=== PATIENT | female | born 1990 | race African-American/Black ===

== ENCOUNTER 2018-07-23 23:13 | Emergency (ER) | payer BC ==
[2018-07-24 00:57] LABS: ABSOLUTE BASOPHILS # (AUTO) 0.1 10^3/uL (0.0-0.2); ABSOLUTE EOSINOPHILS # (AUTO) 0.1 10^3/uL (0.0-0.6); ABSOLUTE LYMPHOCYTES (AUTO) 2.8 10^3/uL (0.5-4.7); ABSOLUTE MONOCYTES (AUTO) 0.6 10^3/uL (0.1-1.4); ABSOLUTE NEUT (AUTO) 7.1 10^3/uL (1.7-8.2); BASOPHILS % (AUTO) 0.9 % (0-2); HEMATOCRIT 36.7 % (36.0-47.0); HEMOGLOBIN 12.8 g/dL (12.0-15.5); LYMPHOCYTES % (AUTO) 26.2 % (13-45); MEAN CORPUSCULAR HEMOGLOBIN 30.3 pg (27.0-33.4); MEAN CORPUSCULAR HGB CONC 34.8 g/dL (32.0-36.0); MEAN CORPUSCULAR VOLUME 87 fl (80-97); MONOCYTES % (AUTO) 5.3 % (3-13); PLATELET COUNT 297 10^3/uL (150-450); RED BLOOD COUNT 4.22 10^6/uL (3.72-5.28); RED CELL DISTRIBUTION WIDTH 12.9 % (11.5-14.0); SEGMENTED NEUTROPHILS % (AUTO) 66.6 % (42-78); TOTAL CELLS COUNTED % (AUTO) 100 %; WHITE BLOOD COUNT 10.7 10^3/uL (4.0-10.5)
[2018-07-24 01:13] LABS: ALANINE AMINOTRANSFERASE 29 U/L (9-52); ALBUMIN 4.6 g/dL (3.5-5.0); ALKALINE PHOSPHATASE 74 U/L (38-126); ANION GAP 14 (5-19); ASPARTATE AMINO TRANSFERASE 28 U/L (14-36); BILIRUBIN,DIRECT 0.4 mg/dL (0.0-0.4); BILIRUBIN,TOTAL 0.6 mg/dL (0.2-1.3); BLOOD UREA NITROGEN 12 mg/dL (7-20); CARBON DIOXIDE 24 mmol/L (22-30); CHLORIDE 102 mmol/L (98-107); GLUCOSE 117 mg/dL (75-110); TOTAL PROTEIN 7.7 g/dL (6.3-8.2)
--- NOTE | 2018-07-24 02:12 | RADIOLOGY REPORT (SQ) ---
EXAM DESCRIPTION: XR CHEST 1 VIEW COMPLETED DATE/TME: 07/24/2018 00:32 CLINICAL HISTORY: 28 years, Female, chest pain COMPARISON: None. NUMBER OF VIEWS: 1 TECHNIQUE: AP portable upright chest LIMITATIONS: None. FINDINGS: Heart size is normal. Lungs are clear. No pneumothorax IMPRESSION: Negative chest copyright 2010 [employer]- All Rights Reserved
[2018-07-24] MEDS ORDERED: KETOROLAC TROMETHAMINE INJ/PF 30 MG/1 ML SDV IV ONE (02:47)
[2018-07-24] MEDS ORDERED: KETOROLAC TROMETHAMINE INJ/PF 30 MG/1 ML SDV IM ONE (03:00)
--- NOTE | 2018-07-24 03:13 | ER Document Report ---
ED General - General Chief Complaint: Chest Pain Stated Complaint: CHEST PAINS Time Seen by Provider: 07/23/18 23:27 Notes: Patient is a pleasant 20-year-old female presents with complaint of pain in her upper chest. She did raise some to the back. Made worse with drinkin and moving. No fevers. No abdominal pain. She does have a family history of [place] but she says she thinks everybody in her family who had MIs were over the age of 50. Patient does not smoke or do drugs. She does drink alcohol 2-3 times a week. Denies any leg pain or leg swelling. No recent long road trips. She went to urgent care earlier today when the pain started and they placed her on omeprazole which she says has not helped. She said they did give her a GI cocktail but that did not help. TRAVEL OUTSIDE OF THE [place] IN LAST 30 DAYS: No - Related Data Allergies/Adverse Reactions: No Known Allergies Allergy (Unverified 07/23/18 23:43) Past Medical History - Social History Smoking Status: Never Smoker Frequency of alcohol use: Occasional Drug Abuse: None Family History: CAD Patient has suicidal ideation: No Patient has homicidal ideation: No Pulmonary Medical History: Reports: Hx Asthma Renal/ Medical History: Denies: Hx Peritoneal Dialysis Review of Systems - Review of Systems Notes: My Normal Review Basic REVIEW OF SYSTEMS: CONSTITUTIONAL : Denies fever, chills, or sweats. Denies recent illness. EENT: Denies eye, ear, throat, or mouth pain or symptoms. Denies nasal or sinus congestion. CARDIOVASCULAR: Has chest pain RESPIRATORY: Denies cough, cold, or chest congestion. Denies shortness of breath, difficulty breathing, or wheezing. GASTROINTESTINAL: Denies abdominal pain. Denies nausea, vomiting, or diarrhea. MUSCULOSKELETAL: Denies neck or back pain or joint pain or swelling. SKIN: Denies rash or skin lesions. NEUROLOGICAL: Denies altered mental status or loss of consciousness. Denies headache. Denies weakness or paralysis or loss of use of either side. Denies problems with gait or speech. Denies sensory or motor loss. ALL OTHER SYSTEMS REVIEWED AND NEGATIVE. Physical Exam - Vital signs Vitals: Pulse Ox 100 07/23/18 23:38 - Notes Notes: General Appearance: Well nourished, alert, cooperative, no acute distress, mild to moderate obvious discomfort. Vitals: reviewed, See vital signs table. Head: no swelling or tenderness to the head Eyes: PERRL, EOMI, Conjuctiva clear Mouth: No decreasd moisture Throat: No tonsillar inflammation, No airway obstruction, No lymphadenopathy Chest wall: No tenderness to palpation of anterior chest wall. Lungs: No wheezing, No rales, No rhonci, No accessory muscle use, good air exchange bilaterally. Heart: Normal rate, Regular rythm, No murmur, no rub Abdomen: Normal BS, soft, No rigidity, No abdominal tenderness, No guarding, no rebound, Extremities: strength 5/5 in all extremities, good pulses in all extremities, no swelling or tenderness in the extremities, no edema. Skin: warm, dry, appropriate color, no rash Neuro: speech clear, oriented x 3, normal affect, responds appropriately to questions. Course - Re-evaluation Re-evalutation: 07/24/18 04:25 Patient is trying to feel better now that Toradol started to kick in. She looks well. She is in no distress. Lung pitt are clear. Chest x-ray does not show any evidence of infiltrative process or pneumothorax. I do not suspect PE as her d-dimer is negative and she is PERC rule negative. Her pain could be related to pleurisy as she says it does hurt more when she takes a deep breath. Possibly she may be having esophageal spasms that she also mentions that the pain occurs when she swallows. At this time I will place her on Toradol. Encourage her to take it with food. Informed to return to ER if she has worsening pain, fevers, difficulty breathing, or if she feels unwell. She is to follow-up with her primary care doctor on Saturday for reevaluation. Patient agrees with plan and will be discharged home. Dictation of this chart was performed using voice recognition software; therefore, there may be some unintended grammatical errors. - Vital Signs Vital signs: Temp Pulse Resp BP Pulse Ox 20 129/81 H 99 07/24/18 03:04 07/24/18 03:04 07/24/18 03:04 - Laboratory Result Diagrams: 07/24/18 00:43 07/24/18 00:43 Laboratory results interpreted by me: 07/24/18 07/24/18 00:43 00:43 WBC 10.7 H Glucose 117 H - EKG Interpretation by Me Additional EKG results interpreted by me: 07/24/18 03:13 EKG is reviewed and interpreted by me. EKG shows sinus rhythm with a rate of [address] segment elevation or depression. No ischemic T wave inversions. MS interval, QRS duration, QTc intervals are within normal range. No old EKG available for comparison. Discharge - Discharge Clinical Impression: Chest pain Qualifiers: Chest pain type: unspecified Qualified Code(s): R07.9 - Chest pain, unspecified Condition: Good Disposition: HOME, SELF-CARE Additional Instructions: Your blood work does not show any evidence of infection. Your blood work does not show evidence of damage to your heart. Your chest x-ray is normal appearing. We did a blood test to look for evidence of blood clots in the lungs and this was negative. I do not see any evidence of any life-threatening causes or dangerous causes of your pain at this time. We however still want you to have a low threshold to return to the ER if you have sudden worsening of pain, fevers, or difficulty breathing. I prescribed a medication called Toradol to help with pain. Please take this medication with food. Do not take other NSAID medicaitons such as Aspirin, Motrin, Ibuprofen, Aleve, or Advil when taking Toradol. It is okay to take Tylenol. Please follow-up with your doctor early this coming week for reevaluation. Prescriptions: Ketorolac Tromethamine [Toradol 10 mg Tablet] 10 mg PO Q8HP PRN #15 tablet PRN Reason: Referrals: IBRAHIMA ROSA MD [Primary Care Provider] - 07/28/18
[2018-07-24 03:37] VITALS: BP 129/81
--- NOTE | 2018-07-24 13:22 | EKG REPORT ---
SEVERITY:- NORMAL ECG - SINUS RHYTHM : Confirmed by: Kraig Vargas MD 24-Jul-2018 13:21:46
== END 2018-07-24 04:38 | disposition home or self-care (01) ==
LOC: ER 23:13
DX: R07.9 Chest pain, unspecified (principal); J45.909 Unspecified asthma, uncomplicated; Z82.49 Family history of ischemic heart disease and other diseases of the circulatory system
CPT/HCPCS: 93005; 99285; 96372; 36415; 84703; 85025; 80053; 84484; 85379; 71045; 93010; J1885